=== PATIENT | female | born 1990 | race Hispanic/Latino ===

== ENCOUNTER 2018-12-30 14:14 | Emergency (ER) | payer OTHER, SELFPAY ==
[2018-12-30 15:00] LABS: #Basophils 0.1 thou/uL (0.0-0.2); #Eosinphils 0.3 thou/uL (0.0-0.7); #Lymphocytes 1.5 thou/uL (1.20-3.40); #Monocytes 0.6 thou/uL (0.11-0.59); #Neutrophils 3.9 thou/uL (1.40-6.50); %Basophils 1.1 % (0.0-1.0); %Eosinophils 4.9 % (0.0-10.0); %Lymphocytes 23.6 % (21.0-51.0); %Monocytes 8.7 % (0.0-10.0); %Neutrophils 61.8 % (42.0-75.0); Hemoglobin 14.2 g/dL (12.0-16.0); Mean Corpuscular HGB CONC 34.5 g/dL (32.0-36.0); Mean Corpuscular Hemoglobin 33.8 pg (27.0-31.0); Mean Corpuscular Volume 98.2 fL (78.0-98.0); Mean Platelet Volume 7.8 fL (7.4-10.4); Platelet Count 296 thou/uL (130-400); RBC Distribution Width 10.6 % (11.5-14.5); Red Blood Cell (RBC) Count 4.18 mill/uL (4.20-5.40); White Blood Cell (WBC) Count 6.4 thou/uL (4.8-10.8)
[2018-12-30 15:01] LABS: Bilirubin Negative (Negative); Blood, Urine Negative (Negative); Clarity CLEAR (Clear); Glucose, Urine (Dipstick) Negative (Negative); Leukocyte Small (Negative); Nitrite Negative (Negative); Protein, Urine (Dipstick) Negative (Neg-Trace); Specific Gravity, Urine 1.016 (1.002-1.036); Urobilinogen 0.2 mg/dL (0.2-1.0); pH, Urine 5.5 (5.0-9.0)
[2018-12-30] MEDS ORDERED: Fentanyl 100 MCG/2 ML VIAL ONE (15:06)
[2018-12-30] MEDS ORDERED: Ketorolac Tromethamine 30 MG/ML VIAL ONE (15:07)
[2018-12-30] MEDS ORDERED: Ondansetron PF 4 MG/2 ML Vial ONE (15:07)
[2018-12-30 15:10] LABS: BHCG - Serum Negative (NEGATIVE); Pregs Control Background? CLEAR/WHITE (CLR/WHITE); Pregs Control Bar Appear? YES (CONTROL BAR)
[2018-12-30 15:12] LABS: Bacteria/HPF 1+ HPF (None Seen); Hyaline Casts/LPF 0-3 HYALINE CAST LPF (0-3 Hyaline); Pathc Cast-AUWi Flag 0.54 (0-2.49); Squamous Epithelial 0-3 HPF (0-3)
[2018-12-30 15:20] LABS: ALT (SGPT) 18 U/L (8-55); AST (SGOT) 24 U/L (5-34); Albumin 4.5 g/dL (3.5-5.0); Alkaline Phosphatase 59 U/L (40-150); Anion Gap 14 mmol/L (10-20); BUN (Urea Nitrogen) 9 mg/dL (7.0-18.7); Calc. Creatinine Clearance 0 mL/min (70-130); Calcium 9.7 mg/dL (7.8-10.44); Carbon Dioxide 21 mmol/L (22-29); Chloride 104 mmol/L (98-107); Estimated GFR-MDRD Greater than 90; Globulin 2.9 g/dL (2.4-3.5); Glucose 93 mg/dL (70-105); Lipase 5 U/L (8-78); Potassium 4.1 mmol/L (3.5-5.1); Protein, Total 7.4 g/dL (6.0-8.3); Sodium 135 mmol/L (136-145)
--- NOTE | 2018-12-30 15:27 | ULT ---
ULTRASOUND PELVIC ULTRASOUND TRANSVAGINAL DOPPLER DUPLEX: DATE: 12/30/2018 HISTORY: 28-year-old female with pelvic pain TECHNIQUE: Transabdominal transducer and endovaginal transducer used to visualize intrapelvic contents with fam scale, color-flow, and spectral analysis. FINDINGS: Uterus: 7.5 x 4 x 4.5 cm Endometrial stripe: 0.9 cm (9 mm) Right ovary: Enlarged, 5.4 x 4.5 x 4.9 cm, expanded and dominated by a 4.6 x 3.2 x 4.2 cm well-circum scribed spongiform mass. No blood flow within the spongiform mass. There is blood flow in the peripherally stretched and displaced, thin ovarian parenchyma. Free fluid: Very small amount around the right ovary. Left ovary: 2.1 x 2.9 x 2.1 cm. 1.4 cm left ovarian dominant follicle, plus several smaller 1's. Blood flow demonstrated in left ovary by Doppler. No free fluid in the cul-de-sac. IMPRESSION: 4.6 cm right ovarian spongiform mass is evidence for hemorrhagic right ovarian cyst.
== END 2018-12-30 16:00 | disposition home or self-care (01) ==
LOC: ERS 14:14
DX: N83.201 Unspecified ovarian cyst, right side (principal); E03.9 Hypothyroidism, unspecified; F41.9 Anxiety disorder, unspecified; F32.9 Major depressive disorder, single episode, unspecified; Z87.891 Personal history of nicotine dependence; Z79.899 Other long term (current) drug therapy; Z79.891 Long term (current) use of opiate analgesic
CPT/HCPCS: 76856; 80053; 81003; 81015; 83690; 84703; 85025; 96374; 96375; J1885; J2405; J3010